=== PATIENT | male | born 1960 | race Caucasian/White ===

== ENCOUNTER 2017-04-12 05:51 | Emergency (ER) | payer OTHER ==
[~2017-04-12] VITALS: Ht 180.3 cm; Wt 90.5 kg
[~2017-04-12 05:51] MED LIST: DEXEDRINE; DEXTROAMPHETAMI15 MG PO; FLUOXETINE; FLUOXETINE HCL40 MG PO; MORPHINE; OXYCODONE; OXYCODONE HCL15 MG PO; PROZAC; WELLBUTRIN
[2017-04-12 05:53] VITALS: BP 139/87
[2017-04-12] MEDS ORDERED: PERCOCET 5/31 TABLET PO (07:56)
== END 2017-04-12 08:42 | disposition home or self-care (01) ==
LOC: EME 05:51
PROC: 2W3CX1Z Immobilization of Right Lower Arm using Splint (ICD-10-PCS; principal; 2017-04-12)
DX: S60.221A Contusion of right hand, initial encounter (principal); W10.9XXA Fall (on) (from) unspecified stairs and steps, initial encounter; F90.9 Attention-deficit hyperactivity disorder, unspecified type; F32.9 Major depressive disorder, single episode, unspecified; G89.29 Other chronic pain; A69.20 Lyme disease, unspecified; Z86.14 Personal history of Methicillin resistant Staphylococcus aureus infection; F17.200 Nicotine dependence, unspecified, uncomplicated; Z88.4 Allergy status to anesthetic agent
CPT/HCPCS: 99281; 99284